=== PATIENT | female | born 1950 | race Caucasian/White ===

== ENCOUNTER 2021-05-11 05:05 | Emergency (ER) | payer MEDICARE, OTHER ==
[~2021-05-11] VITALS: Ht 162.6 cm; Wt 61.8 kg
[2021-05-11] MEDS ORDERED: NS IV 1000 ML 1,000 ML IV STA (05:40)
--- NOTE | 2021-05-11 05:48 | ED Abdominal Pain ---
General Chief Complaint: Abdominal/GI Problems Stated Complaint: RT SIDE UPPER ABD PAIN Nursing Triage Note: AMBULATES TO ROOM #7 W/CO ABD PAIN AND NAUSEA. STATES ON 05/10/21 SHE "SUDDENLY" BEGAN TO EXPERIENCE R UPPER QUADRANT ABD PAIN RADIATING TO R FLANK DESCRIBED "DULL, BURNING, AND SHARP." AT SIDE. Source of Information: Patient Exam Limitations: No Limitations (SONYA CHINCHILLA MD) History of Present Illness Date Seen by Provider: May 11, 2021 Time Seen by Provider: 05:31 Initial Comments Here with report of right-sided abdominal pain that started yesterday and moved up to the right anterior and right flank. Describes as sharp and burning but also some persistent dull pain. Worsened overnight causing her ultimately to come in. States it feels like when she was having her gallbladder attack. She has had hysterectomy and cholecystectomy previously. Admits to moderate nausea but no vomiting. Denies diarrhea. Had normal bowel movement yesterday. Denies dysuria. Does have some right-sided CVA tenderness. Denies upper respiratory infections or symptoms and has completed her Covid vaccination series. Timing/Duration: 24 Hours Severity/Quality: Moderate, Burning, Dull, Sharp Location: RUQ Radiation: Back (Right-sided), Flank Modifying Factors: Worsens With Eating; Improves With Resting Associated Symptoms: No Chest Pain, No Fever/Chills; Nausea/Vomiting; No Shortness of Air, No Weakness (SONYA CHINCHILLA MD) Allergies and Home Medications Allergies Coded Allergies: No Known Drug Allergies (Unverified , 05/11/21) Patient Home Medication List Home Medication List Reviewed: Yes (SONYA CHINCHILLA MD) Review of Systems Review of Systems Constitutional: see HPI; No chills, No fever EENTM: No No Symptoms Reported Respiratory: Denies Cough, Denies Shortness of Air Cardiovascular: Denies Chest Pain, Denies Edema Gastrointestinal: See HPI Genitourinary: See HPI; Denies Frequency, Denies Pain Musculoskeletal: back pain; No muscle pain Skin: no symptoms reported (SONYA CHINCHILLA MD) All Other Systems Reviewed Negative Unless Noted: Yes (SONYA CHINCHILLA MD) Past Ljshyid-Itpftt-Cquojo Hx Patient Social History Tobacco Use?: No Substance use?: No Pt feels they are or have been: No (SONYA CHINCHILLA MD) Immunizations Up To Date First/Initial COVID19 Vaccinat: DECEMBER 2020 Second COVID19 Vaccination Dave: JANUARY 2021 COVID19 Vaccine Baker Test: DMITRY (SONYA CHINCHILLA MD) Past Medical History Surgeries: Yes Gallbladder, Hysterectomy Respiratory: No Cardiac: No Neurological: No Genitourinary: No Gastrointestinal: Yes Gall Bladder Disease (SONYA CHINCHILLA MD) Family Medical History No Pertinent Family Hx (SONYA CHINCHILLA MD) Physical Exam Vital Signs Vital Signs - First Documented 05/11/21 05:15 Temp 36.1 Pulse 61 Resp 17 B/P (MAP) 151/82 (105) Pulse Ox 97 O2 Delivery Room Air (BETSY DUBON MD) Vital Signs Capillary Refill : Less Than 3 Seconds (SONYA CHINCHILLA MD) Height/Weight/BMI Height: '" Weight: lbs. oz. kg; 23.00 BMI Method: General Appearance: WD/WN, no apparent distress HEENT: PERRL/EOMI, pharynx normal Neck: full range of motion, supple Respiratory: lungs clear, normal breath sounds Cardiovascular: regular rate, rhythm, no murmur Gastrointestinal: soft; No guarding, No rebound; tenderness (Mild right upper quadrant) Extremities: non-tender, normal inspection Back: no vertebral tenderness, CVA tenderness (R); No CVA tenderness (L) Neurologic/Psychiatric: alert, oriented x 3 Skin: normal color, warm/dry (SONYA CHINCHILLA MD) Progress/Results/Core Measures Results/Orders Lab Results Laboratory Tests Test 05/11/21 05:25 05/11/21 05:30 05/11/21 05:40 Range/Units White Blood Count 5.7 4.3-11.0 10^3/uL Red Blood Count 5.14 H 3.80-5.11 10^6/uL Hemoglobin 15.0 11.5-16.0 g/dL Hematocrit 46 35-52 % Mean Corpuscular Volume 90 80-99 fL Mean Corpuscular Hemoglobin 29 25-34 pg Mean Corpuscular Hemoglobin Concent 32 32-36 g/dL Red Cell Distribution Width 12.9 10.0-14.5 % Platelet Count 195 130-400 10^3/uL Mean Platelet Volume 11.5 9.0-12.2 fL Immature Granulocyte % (Auto) 1 % Neutrophils (%) (Auto) 76 H 42-75 % Lymphocytes (%) (Auto) 12 12-44 % Monocytes (%) (Auto) 10 0-12 % Eosinophils (%) (Auto) 1 0-10 % Basophils (%) (Auto) 1 0-10 % Neutrophils # (Auto) 4.3 1.8-7.8 10^3/uL Lymphocytes # (Auto) 0.7 L 1.0-4.0 10^3/uL Monocytes # (Auto) 0.6 0.0-1.0 10^3/uL Eosinophils # (Auto) 0.1 0.0-0.3 10^3/uL Basophils # (Auto) 0.0 0.0-0.1 10^3/uL Immature Granulocyte # (Auto) 0.0 0.0-0.1 10^3/uL Sodium Level 142 135-145 MMOL/L Potassium Level 4.0 3.6-5.0 MMOL/L Chloride Level 105 98-107 MMOL/L Carbon Dioxide Level 29 21-32 MMOL/L Anion Gap 8 5-14 MMOL/L Blood Urea Nitrogen 12 7-18 MG/DL Creatinine 0.92 0.60-1.30 MG/DL Estimat Glomerular Filtration Rate > 60 BUN/Creatinine Ratio 13 Glucose Level 110 H 70-105 MG/DL Calcium Level 9.5 8.5-10.1 MG/DL Corrected Calcium 9.3 8.5-10.1 MG/DL Total Bilirubin 1.4 H 0.1-1.0 MG/DL Aspartate Amino Transf (AST/SGOT) 960 H 5-34 U/L Alanine Aminotransferase (ALT/SGPT) 756 H 0-55 U/L Alkaline Phosphatase 171 H 40-136 U/L C-Reactive Protein High Sensitivity 0.51 H 0.00-0.50 MG/DL Total Protein 7.6 6.4-8.2 GM/DL Albumin 4.3 3.2-4.5 GM/DL Prothrombin Time 13.3 12.2-14.7 SEC INR Comment 1.0 0.8-1.4 Activated Partial Thromboplast Time 28 24-35 SEC Acetaminophen Level < 10 L 10-30 UG/ML Hepatitis A IgM Antibody Non-Reactive Non-Reactive Hepatitis B Surface Antigen Non-Reactive Non-Reactive Hepatitis B Core IgM Antibody Non-Reactive Non-Reactive Hepatitis C Antibody Non-Reactive Non-Reactive Urine Color YELLOW Urine Clarity CLEAR Urine pH 7.0 5-9 Urine Specific [place] 1.015 L 1.016-1.022 Urine Protein NEGATIVE NEGATIVE Urine Glucose (UA) NEGATIVE NEGATIVE Urine Ketones NEGATIVE NEGATIVE Urine Nitrite NEGATIVE NEGATIVE Urine Bilirubin NEGATIVE NEGATIVE Urine Urobilinogen 4.0 < = 1.0 MG/DL Urine Leukocyte Esterase TRACE H NEGATIVE Urine RBC (Auto) NEGATIVE NEGATIVE Urine RBC RARE /HPF Urine WBC 0-2 /HPF Urine Squamous Epithelial Cells RARE /HPF Urine Crystals NONE /LPF Urine Bacteria TRACE /HPF Urine Casts NONE /LPF Urine Mucus SMALL H /LPF Urine Culture Indicated YES (BETSY DUBON MD) My Orders Orders - BETSY DUBON MD Fentanyl Inj (Sublimaze Injection) (05/11/21 06:30) Us Hepatic (Liver)[id number] (05/11/21 06:57) Hepatitis Panel Acute (05/11/21 08:14) Fentanyl Inj (Sublimaze Injection) (05/11/21 09:00) Acetaminophen (05/11/21 09:21) Protime With Inr (05/11/21 09:21) Partial Thromboplastin Time (05/11/21 09:21) Ns Iv 1000 Ml (Sodium Chloride 0.9%) (05/11/21 12:45) Fentanyl Inj (Sublimaze Injection) (05/11/21 17:15) (BETSY DUBON MD) Medications Given in ED (BETSY DUBON MD) Vital Signs/I&O 05/11/21 05/11/21 05:15 18:43 Temp 36.1 Pulse 61 63 Resp 17 18 B/P (MAP) 151/82 (105) 140/72 Pulse Ox 97 96 O2 Delivery Room Air 05/12/21 00:00 Intake Total 1000 ml Balance 1000 ml (BETSY DUBON MD) Blood Pressure Mean: 105 Progress Progress Note : Progress Note Seen and evaluated. IV, labs and UA ordered. Normal saline 1 L bolus ordered. Anticipate CT abdomen pelvis but we will wait for kidney function test. She has declined pain or nausea medicine currently but offer is open if she needs it. Monitor patient. (SONYA CHINCHILLA MD) Progress Note #1: Time: 14:43 Progress Note Patient seen and evaluated by me 70-year-old with an onset of right sided flank and abdominal pain over the course of the last 24 hours. Initial evaluation and laboratory studies ordered by Dr. CHINCHILLA. Patient did request a couple of rounds of pain medication. Fentanyl was offered and given. Patient has had IV fluids including 2 L of normal saline. She has significant elevations in her liver functions reflecting transaminitis/hepatitis. I did make phone calls to [facility] in [place], [facility] in [place] and [facility] in [place] and all of those hospitals were on divert. Made a call to and they have accepted the patient pending bed assignment. Called to get an update on status at 1445. We are still waiting on bed assignment. Patient has been up into the bathroom. Vital signs have remained stable. She has not requested any more pain medications recently. anticipates they will have a bed available sometime late afternoon early evening. Progress Note #2: Time: 17:52 Progress Note Patient still waiting on bed assignment from . has requested more medication and meal tray. she is not nauseated and I do not anticipate surgery urgently. Patient will likely just be monitored at and possibly have ERCP vs MRCP to further investigate for possible stone. So I did let her eat. (BETSY DUBON MD) Diagnostic Imaging Comments [facility]. [place], [place] NAME: KERRY GALVEZ [facility] REC#: [id number] PT STATUS: REG ER : 1950 PHYSICIAN: BETSY DUBON MD ADMIT DATE: 05/11/21/ER Signed Date of Exam:05/11/21 US HEPATIC (LIVER)[id number] PROCEDURE: US Hepatic (Liver). TECHNIQUE: Multiple real-time grayscale images were obtained over the right upper quadrant in various projections. INDICATION: Elevated liver enzymes. Right upper quadrant pain The liver is normal. The gallbladder is absent. The bile ducts are nondilated. Pancreas, aorta, IVC and right kidney are normal. There is no ascites. IMPRESSION: No abnormality is seen. Dictated by: Dictated on workstation # [id number] Dict: 05/11/21 0827 Trans: 05/11/21 1029 MARIBELL [id number] Interpreted by: PATY CASTRO MD Electronically signed by: PATY CASTRO MD 05/11/21 1029 (BETSY DUBON MD) Departure Impression Primary Impression: Abdominal pain Qualified Codes: R10.11 - Right upper quadrant pain Additional Impression: Acute hepatitis Disposition: XFER SHT-TRM HOSP Condition: Stable Transfer Transfer Reason: Exceeds level of care Time Spoke to Accepting Phy: 09:15 Transfer Time: 18:45 Transfer Facility: [facility] Method of Transfer: Private Vehicle (BETSY DUBON MD) Departure-Patient Inst. Referrals: ALIRIO GRAF MD (PCP/Family) Primary Care Physician SONYA CHINCHILLA MD May 11, 2021 05:48 BETSY DUBON MD May 11, 2021 14:52
[2021-05-11 05:52] LABS: ALBUMIN 4.3 GM/DL (3.2-4.5); CHLORIDE 105 MMOL/L (98-107); SODIUM 142 MMOL/L (135-145)
[2021-05-11 05:53] LABS: CALCIUM 9.5 MG/DL (8.5-10.1)
[2021-05-11 05:54] LABS: GLUCOSE 110 MG/DL (70-105); TOTAL PROTEIN 7.6 GM/DL (6.4-8.2)
[2021-05-11 05:55] LABS: CARBON DIOXIDE 29 MMOL/L (21-32)
[2021-05-11 05:56] LABS: BILIRUBIN,TOTAL 1.4 MG/DL (0.1-1.0)
[2021-05-11 05:58] LABS: ALKALINE PHOSPHATASE 171 U/L (40-136); BASOPHILS % (AUTO) 1 % (0-10); CREATININE SERUM 0.92 MG/DL (0.60-1.30); EOSINOPHILS # (AUTO) 0.1 10^3/uL (0.0-0.3); EOSINOPHILS % (AUTO) 1 % (0-10); GFR ESTIMATED > 60; HEMATOCRIT 46 % (35-52); LYMPHOCYTES # (AUTO) 0.7 10^3/uL (1.0-4.0); LYMPHOCYTES % (AUTO) 12 % (12-44); MEAN CORPUSCULAR HEMOGLOBIN 29 pg (25-34); MEAN CORPUSCULAR HGB CONC 32 g/dL (32-36); MEAN CORPUSCULAR VOLUME 90 fL (80-99); MEAN PLATELET VOLUME 11.5 fL (9.0-12.2); MONOCYTES # (AUTO) 0.6 10^3/uL (0.0-1.0); MONOCYTES % (AUTO) 10 % (0-12); NEUTROPHILS # (AUTO) 4.3 10^3/uL (1.8-7.8); NEUTROPHILS % (AUTO) 76 % (42-75); PLATELET COUNT 195 10^3/uL (130-400); WHITE BLOOD COUNT 5.7 10^3/uL (4.3-11.0)
[2021-05-11 05:59] LABS: BUN/CREATININE RATIO 13
[2021-05-11 06:00] LABS: BILIRUBIN,URINE NEGATIVE (NEGATIVE); CLARITY,URINE CLEAR; COLOR,URINE YELLOW; GLUCOSE, URINE (UA) NEGATIVE (NEGATIVE); KETONES,URINE NEGATIVE (NEGATIVE); LEUKOCYTE ESTERASE ,URINE TRACE (NEGATIVE); NITRITE,URINE NEGATIVE (NEGATIVE); PROTEIN,URINE NEGATIVE (NEGATIVE)
[2021-05-11 06:01] LABS: ALANINE AMINOTRANSFERASE 756 U/L (0-55)
[2021-05-11 06:08] LABS: BACTERIA,URINE TRACE /HPF; RBC,URINE RARE /HPF; SQUAMOUS EPITHELIAL CELL,UR RARE /HPF; WBC,URINE 0-2 /HPF
[2021-05-11] MEDS ORDERED: fentaNYL INJ 100 MCG/2 ML AMP IVP ONE ×3 (06:30→17:15)
--- NOTE | 2021-05-11 08:32 | Diagnostic Imaging Report ---
PROCEDURE: US Hepatic (Liver). TECHNIQUE: Multiple real-time grayscale images were obtained over the right upper quadrant in various projections. INDICATION: Elevated liver enzymes. Right upper quadrant pain The liver is normal. The gallbladder is absent. The bile ducts are nondilated. Pancreas, aorta, IVC and right kidney are normal. There is no ascites. IMPRESSION: No abnormality is seen. Dictated by: Dictated on workstation # [id number]
[2021-05-11 09:41] LABS: PROTHROMBIN TIME PATIENT 13.3 SEC (12.2-14.7)
[2021-05-11] MEDS ORDERED: NS IV 1000 ML 1,000 ML IV SCH (12:45)
[2021-05-11 18:43] VITALS: BP 140/72
[2021-05-11 21:47] LABS: HEPATITIS C ANTIBODY C Non-Reactive (Non-Reactive)
== END 2021-05-11 18:43 | disposition short-term general hospital (02) ==
LOC: EDUNIT# 05:05 → ER 05:10
DX: B17.9 Acute viral hepatitis, unspecified (principal); Z90.49 Acquired absence of other specified parts of digestive tract; Z90.711 Acquired absence of uterus with remaining cervical stump
CPT/HCPCS: 76705; 80053; 80074; 81000; 85025; 85610; 85730; 86141; 99285; G0480; 36415; 80329